=== PATIENT | female | born 1930 | race Caucasian/White ===

== ENCOUNTER 2017-04-06 05:54 | Emergency (ER) | payer MEDICARE ==
[~2017-04-06] VITALS: Ht 152.4 cm; Wt 50.8 kg
[~2017-04-06 05:54] MED LIST: DARVOCET N 1001 TAB PO
[2017-04-06] MEDS ORDERED: PRAVACHOL80 M1 PO (06:00)
[2017-04-06] MEDS ORDERED: METFORMIN1000 MG PO (06:00)
[2017-04-06] MEDS ORDERED: HYDR25T PO (06:01)
[2017-04-06] MEDS ORDERED: ASPIRIN CHEWABL81 MG PO (06:01)
[2017-04-06] MEDS ORDERED: NORVASC10 MG PO (06:01)
[2017-04-06] MEDS ORDERED: LISINOPRIL20 MG PO (06:01)
[2017-04-06] MEDS ORDERED: TIMOLOL 5 ML5 ML OPH (06:02)
[2017-04-06] MEDS ORDERED: TRAVATAN 0.0042.5 M1 OP (06:02)
[2017-04-06 06:23] LABS: BILIRUBIN NEGATIVE (NEGATIVE); BLOOD 3+ (NEGATIVE); CLARITY CLOUDY (CLEAR); COLOR RED (YELLOW); GLUCOSE NEGATIVE (NEGATIVE); KETONE NEGATIVE (NEGATIVE); LEUKO ESTERASE 3+ (NEGATIVE); NITRITE NEGATIVE (NEGATIVE); SPECIFIC GRAVITY <= 1.005 (1.005-1.030); UROBILINOGEN 0.2 E.U./dl (0.2-1.0)
[2017-04-06 06:30] LABS: BASO # 0.1 10*3/uL (0.0-0.1); EOS # 0.4 10*3/uL (0.0-0.4); EOS % 4.4 % (1.0-4.0); HEMATOCRIT 35.3 % (37.0-47.0); HEMOGLOBIN 10.9 g/dl (12.0-16.0); LYMPH # 2.4 10*3/uL (1.3-4.4); LYMPH % 28.8 % (27.0-41.0); MEAN CELL VOLUME 75.1 fl (81.0-99.0); MEAN CORPUSCULAR HGB 23.2 pg (27.0-31.0); MEAN CORPUSCULAR HGB CONC 30.9 g/dl (33.0-37.0); MEAN PLATELET VOLUME 8.5 fl (9.6-12.3); MONO # 0.6 10*3/uL (0.1-1.0); MONO % 7.6 % (3.0-9.0); NEUT # 4.8 10*3/uL (2.3-7.9); PLATELET COUNT AUTOMATED 354 10*3/uL (130-400); RED CELL DISTRI WIDTH 16.4 % (0-14.5); WHITE BLOOD COUNT 8.2 10*3/uL (4.8-10.8)
[2017-04-06 06:45] LABS: BACTERIA 2+; RBC TNTC rbc/hpf (0-2); WBC 31-40 wbc/hpf (0-5)
[2017-04-06 06:46] LABS: ALBUMIN 3.6 gm/dl (3.1-4.5); ALKALINE PHOSPHATASE 55 U/L (45-117); BUN 11 mg/dl (7-24); CHLORIDE 101 mmol/L (98-107); CREATININE 0.75 mg/dL (0.55-1.02); LIPASE 175 U/L (73-393); POTASSIUM 3.9 mmol/L (3.5-5.1); SGOT/AST 21 IU/L (3-35); SGPT/ALT 15 U/L (12-78); SODIUM 139 mmol/L (136-145); TOTAL PROTEIN 8.2 gm/dL (6.4-8.2)
[2017-04-06 06:48] LABS: TROPONIN I < 0.015 ng/ml (<0.045)
[2017-04-06] MEDS ORDERED: LEVAQUIN250 M1 PO (10:58)
== END 2017-04-06 11:31 | disposition home or self-care (01) ==
LOC: ED 05:54
PROVIDERS: Emergency Medicine Emergency Medical Services
DX: N39.0 Urinary tract infection, site not specified (principal); Z90.49 Acquired absence of other specified parts of digestive tract; Z90.710 Acquired absence of both cervix and uterus; Z79.899 Other long term (current) drug therapy; Z79.82 Long term (current) use of aspirin

== ENCOUNTER → 2018-01-19 | Outpatient (CLI) | payer MEDICARE ==
[~2018-01-19] MED LIST changes: +ASPIRIN CHEWABL81 MG PO; +HYDR25T PO; +LEVAQUIN250 M1 PO; +LISINOPRIL20 MG PO; +METFORMIN1000 MG PO; +NORVASC10 MG PO; +PRAVACHOL80 M1 PO; +TIMOLOL 5 ML5 ML OPH; +TRAVATAN 0.0042.5 M1 OP
== END | disposition home or self-care (01) ==
LOC: CARD 08:00
DX: I35.0 Nonrheumatic aortic (valve) stenosis (principal)

== ENCOUNTER → 2019-02-21 | Outpatient (CLI) | payer MEDICARE ==
[2019-02-21 09:09] LABS: BASO # 0.1 10*3/uL (0.0-0.1); BASO % 1.1 % (0.0-1.0); EOS # 0.3 10*3/uL (0.0-0.4); EOS % 4.8 % (1.0-4.0); HEMATOCRIT 31.9 % (37.0-47.0); HEMOGLOBIN 9.1 g/dl (12.0-16.0); LYMPH # 1.8 10*3/uL (1.3-4.4); LYMPH % 32.2 % (27.0-41.0); MEAN CELL VOLUME 68.2 fl (81.0-99.0); MEAN CORPUSCULAR HGB 19.4 pg (27.0-31.0); MEAN CORPUSCULAR HGB CONC 28.5 g/dl (33.0-37.0); MEAN PLATELET VOLUME 9.1 fl (9.6-12.3); MONO # 0.5 10*3/uL (0.1-1.0); MONO % 8.8 % (3.0-9.0); NEUT % 52.9 % (47.0-73.0); PLATELET COUNT AUTOMATED 461 10*3/uL (130-400); RED BLOOD COUNT 4.68 10*6/uL (4.10-5.10); RED CELL DISTRI WIDTH 19.1 % (0-14.5); WHITE BLOOD COUNT 5.7 10*3/uL (4.8-10.8)
[2019-02-21 09:43] LABS: ALBUMIN 3.7 gm/dl (3.1-4.5); ALKALINE PHOSPHATASE 62 U/L (45-117); BUN 12 mg/dl (7-24); CHLORIDE 99 mmol/L (98-107); CHOLESTEROL 164 mg/dL (<200); CREATININE 0.69 mg/dL (0.55-1.02); HDL CHOLESTEROL 89 mg/dl (40-60); LDL CHOLESTEROL 54 mg/dL (9-159); POTASSIUM 3.5 mmol/L (3.5-5.1); SGOT/AST 15 IU/L (3-35); SGPT/ALT 13 U/L (12-78); SODIUM 136 mmol/L (136-145); TOTAL PROTEIN 7.9 gm/dL (6.4-8.2); TRIGLYCERIDES 105 mg/dl (<150); VLDL CHOLESTEROL 21 mg/dL (6-40)
== END | disposition home or self-care (01) ==
LOC: LAB 07:53
PROVIDERS: Family Medicine
DX: R53.83 Other fatigue (principal); E11.9 Type 2 diabetes mellitus without complications; E78.2 Mixed hyperlipidemia; I10 Essential (primary) hypertension

== ENCOUNTER 2019-06-09 11:46 | Inpatient (IN) | payer MEDICARE ==
[~2019-06-09] VITALS: Ht 152.4 cm; Wt 50.5 kg
[2019-06-09 11:47] VITALS: BP 147/66
[2019-06-09 13:41] LABS: BASO # 0.1 10*3/uL (0.0-0.1); BASO % 0.4 % (0.0-1.0); EOS # 0.4 10*3/uL (0.0-0.4); EOS % 1.9 % (1.0-4.0); HEMATOCRIT 32.8 % (37.0-47.0); HEMOGLOBIN 9.7 g/dl (12.0-16.0); LYMPH # 1.6 10*3/uL (1.3-4.4); LYMPH % 8.1 % (27.0-41.0); MEAN CELL VOLUME 69.6 fl (81.0-99.0); MEAN CORPUSCULAR HGB 20.6 pg (27.0-31.0); MEAN CORPUSCULAR HGB CONC 29.6 g/dl (33.0-37.0); MEAN PLATELET VOLUME 8.9 fl (9.6-12.3); NEUT # 16.8 10*3/uL (2.3-7.9); NEUT % 83.9 % (47.0-73.0); PLATELET COUNT AUTOMATED 414 10*3/uL (130-400); RED BLOOD COUNT 4.71 10*6/uL (4.10-5.10)
[2019-06-09 13:54] LABS: ACT PARTIAL THROMBO TIME 24.2 SECONDS (20.0-32.1); ALBUMIN 3.3 gm/dl (3.1-4.5); ALKALINE PHOSPHATASE 50 U/L (45-117); BUN 11 mg/dl (7-24); CHLORIDE 102 mmol/L (98-107); LIPASE 92 U/L (73-393); POTASSIUM 3.8 mmol/L (3.5-5.1); SGOT/AST 28 IU/L (3-35); SGPT/ALT 22 U/L (12-78); SODIUM 137 mmol/L (136-145)
[2019-06-09 13:55] LABS: TROPONIN I < 0.015 ng/ml (<0.045)
[2019-06-09 15:28] LABS: BILIRUBIN NEGATIVE (NEGATIVE); BLOOD NEGATIVE (NEGATIVE); CLARITY CLEAR (CLEAR); COLOR YELLOW (YELLOW); GLUCOSE NEGATIVE (NEGATIVE); KETONE 1+ (NEGATIVE); LEUKO ESTERASE 2+ (NEGATIVE); NITRITE NEGATIVE (NEGATIVE); PH 7.5 (5.0-9.0); SPECIFIC GRAVITY 1.015 (1.005-1.030); UROBILINOGEN 0.2 E.U./dl (0.2-1.0)
[2019-06-09 16:56] VITALS: BP 137/67
[2019-06-09 17:26] VITALS: BP 118/59
[2019-06-09 18:26] VITALS: BP 134/76
--- NOTE | 2019-06-09 18:40 | NUR ---
Time: 1839 A 89 year old female admitted to 5E under services of MADAI DE JESUS DO. Pt. arrived via stretcher from ER. Chief complaint: left hip pain post fall. [employer]
--- NOTE | 2019-06-09 18:45 | NUR ---
Reviewed home med list with pt daughter Sarah.
[2019-06-09] MEDS ORDERED: PRESERVISION A1 EAC1 PO (18:48)
--- NOTE | 2019-06-09 18:50 | NUR ---
Notified Dr. Hein that med rec was updated.
--- NOTE | 2019-06-09 19:00 | NUR ---
In email no ortho coverage today. Dr. Jay is available for phone triage tomorrow.
[2019-06-09 20:00] VITALS: BP 136/65
[2019-06-10] VITALS: BP 132/69
[2019-06-10 06:49] LABS: BASO % 0.3 % (0.0-1.0); EOS # 0.2 10*3/uL (0.0-0.4); EOS % 1.6 % (1.0-4.0); HEMOGLOBIN 8.5 g/dl (12.0-16.0); LYMPH # 1.2 10*3/uL (1.3-4.4); LYMPH % 12.7 % (27.0-41.0); MEAN CELL VOLUME 68.9 fl (81.0-99.0); MEAN CORPUSCULAR HGB 20.2 pg (27.0-31.0); MEAN CORPUSCULAR HGB CONC 29.3 g/dl (33.0-37.0); MEAN PLATELET VOLUME 8.4 fl (9.6-12.3); MONO # 0.7 10*3/uL (0.1-1.0); MONO % 7.1 % (3.0-9.0); NEUT # 7.3 10*3/uL (2.3-7.9); NEUT % 77.9 % (47.0-73.0); PLATELET COUNT AUTOMATED 314 10*3/uL (130-400); RED BLOOD COUNT 4.21 10*6/uL (4.10-5.10); RED CELL DISTRI WIDTH 19.8 % (0-14.5); WHITE BLOOD COUNT 9.4 10*3/uL (4.8-10.8)
[2019-06-10 07:15] LABS: ALBUMIN 2.9 gm/dl (3.1-4.5); ALKALINE PHOSPHATASE 49 U/L (45-117); BUN 10 mg/dl (7-24); CHLORIDE 99 mmol/L (98-107); CREATININE 0.58 mg/dL (0.55-1.02); PHOSPHOROUS 3.2 mg/dL (2.5-4.9); POTASSIUM 3.7 mmol/L (3.5-5.1); SGOT/AST 21 IU/L (3-35); SGPT/ALT 19 U/L (12-78); SODIUM 135 mmol/L (136-145); TOTAL PROTEIN 6.5 gm/dL (6.4-8.2)
[2019-06-10 07:42] LABS: VITAMIN D, 25-HYDROXY 39.1 ng/mL (30-100)
[2019-06-10 08:00] VITALS: BP 143/62
--- NOTE | 2019-06-10 08:14 | NUR ---
PT C/O OF NAUSEA PRN ZOFRAN GIVEN PER ORDER
--- NOTE | 2019-06-10 09:40 | NUR ---
PT C/O OF NAUSEA AND DISCOMFORT IN PELVIC AREA, PAIN RATING 5/10 PRN PHENERGAN GIVEN D/T ZOFRAN BEING INEFFECTIVE, PRN NORCO GIVEN FOR PAIN
--- NOTE | 2019-06-10 10:00 | NUR ---
PT RESTING WITH EYES CLOSED, NO COMPLAINTS, GRAND DAUGHTER AT BEDSIDE
[2019-06-10 12:00] VITALS: BP 118/49
[2019-06-10 16:00] VITALS: BP 122/50
--- NOTE | 2019-06-10 19:54 | NUR ---
PATIENT IS RESTING IN BED WITH EASY AND REGULAR RESPERS ON ROOM AIR. ASSESSMENT IS COMPLETE WITH NO S/S OF DISTRESS NOTED AT THIS TIME. PATIENT DOES C/O OF PELVIC PAIN RATING A 5/10. BED IS LOW, LOCKED, AND CALL LIGHT IS WITHIN REACH. WILL CONTINUE TO MONITOR. BEDSIDE GLUCOSE 174.
[2019-06-10 20:00] VITALS: BP 126/65
--- NOTE | 2019-06-10 20:04 | NUR ---
PRN NORCO GIVEN FOR C/O PELVIC PAIN RATING A 7/10. CALL LIGHT IS WITHIN REACH, WILL MONITOR EFFECT.
--- NOTE | 2019-06-10 20:08 | NUR ---
PRN NORCO GIVEN PER ORDER. PATIENT TOLERATED WELL. CALL LIGHT IS WITHIHN REACH WILL MONITOR EFFECT.
--- NOTE | 2019-06-10 21:00 | NUR ---
PRN NORCO EFFECTIVE, PATIENT IS SLEEPING WITH EASY AND REGULAR RESPERS ON ROOM AIR. CALL LIGHT IS WITHIN REACH.
[2019-06-11] VITALS: BP 116/68
[2019-06-11 06:44] LABS: BASO % 0.4 % (0.0-1.0); EOS % 0.3 % (1.0-4.0); HEMATOCRIT 28.9 % (37.0-47.0); HEMOGLOBIN 8.4 g/dl (12.0-16.0); LYMPH % 8.3 % (27.0-41.0); MEAN CELL VOLUME 69.6 fl (81.0-99.0); MEAN CORPUSCULAR HGB 20.2 pg (27.0-31.0); MEAN CORPUSCULAR HGB CONC 29.1 g/dl (33.0-37.0); MONO # 0.8 10*3/uL (0.1-1.0); NEUT # 9.5 10*3/uL (2.3-7.9); NEUT % 83.5 % (47.0-73.0); PLATELET COUNT AUTOMATED 347 10*3/uL (130-400); RED BLOOD COUNT 4.15 10*6/uL (4.10-5.10); RED CELL DISTRI WIDTH 19.9 % (0-14.5); WHITE BLOOD COUNT 11.4 10*3/uL (4.8-10.8)
[2019-06-11 07:15] LABS: ALBUMIN 2.7 gm/dl (3.1-4.5); ALKALINE PHOSPHATASE 54 U/L (45-117); BUN 13 mg/dl (7-24); CHLORIDE 98 mmol/L (98-107); CREATININE 0.65 mg/dL (0.55-1.02); POTASSIUM 3.8 mmol/L (3.5-5.1); SGOT/AST 18 IU/L (3-35); SGPT/ALT 16 U/L (12-78); SODIUM 135 mmol/L (136-145); TOTAL PROTEIN 6.5 gm/dL (6.4-8.2)
[2019-06-11 08:00] VITALS: BP 110/56
--- NOTE | 2019-06-11 09:30 | NUR ---
PHYSICAL THERAPY PT EVAL COMPLETED ON LEVEL 5: FULL EVAL TO FOLLOW . RECOMMEND PT WHILE HERE TO ADDRESS DECREASED STRENGTH AND FUNCTIONAL MOBILITY . PT EVAL IS MODERATE COMPLEXITY: [id number]. D/C REC: SNF ON D/C. THANK YOU FOR REFERRAL ASHLEY PETERS PT
--- NOTE | 2019-06-11 10:58 | NUR ---
PT BLADDER SCANNED PER ORDER, 700CC RESIDUAL URINE PRESENT PER BLADDER SCANNER, AT BEDSIDE AND ORDERED TAYLOR CATH TO BE INSERTED, 16FR TAYLOR CATH INSERTED USING STERILE TECHNNIQUE, IMMEDIATE RETURN OF 600CC STAR CLEAR URINE OUTPUT, BALLOON INFLATED AND PT TOLERATED INSERTION WIHTOU ANY DIFFICULTIES
[2019-06-11 12:00] VITALS: BP 131/58
[2019-06-11 16:00] VITALS: BP 106/50
[2019-06-11 20:00] VITALS: BP 115/52
--- NOTE | 2019-06-11 20:34 | NUR ---
PRN TYLENOL GIVEN FOR PELVIC PAIN, CALL LIGHT IS WITHIN REACH. WILL MONITOR EFFECT.
[2019-06-12] VITALS: BP 113/53
--- NOTE | 2019-06-12 04:37 | NUR ---
PRN NORCO GIVEN FOR PELVIC PAIN, BEDSIDE GLUCOSE 124.
--- NOTE | 2019-06-12 04:37 | NUR ---
PRN NORCO GIVEN FOR PELVIC PAIN, BEDSIDE GLUCOSE 124. CALL LIGHT IS WITHIN REACH. WILL MONITOR EFFECT.
--- NOTE | 2019-06-12 05:27 | NUR ---
PRN NORCO SEEMS EFFECTIVE, PATIENT IS SLEEPING. CALL LIGHT IS WITHIN REACH.
[2019-06-12 06:29] LABS: BASO # 0.1 10*3/uL (0.0-0.1); BASO % 0.4 % (0.0-1.0); EOS # 0.2 10*3/uL (0.0-0.4); EOS % 1.8 % (1.0-4.0); HEMATOCRIT 26.1 % (37.0-47.0); HEMOGLOBIN 7.7 g/dl (12.0-16.0); LYMPH # 1.5 10*3/uL (1.3-4.4); MEAN CORPUSCULAR HGB 20.4 pg (27.0-31.0); MEAN CORPUSCULAR HGB CONC 29.5 g/dl (33.0-37.0); MEAN PLATELET VOLUME 8.9 fl (9.6-12.3); MONO # 1.1 10*3/uL (0.1-1.0); MONO % 9.1 % (3.0-9.0); NEUT # 8.7 10*3/uL (2.3-7.9); NEUT % 75.2 % (47.0-73.0); PLATELET COUNT AUTOMATED 302 10*3/uL (130-400); RED BLOOD COUNT 3.78 10*6/uL (4.10-5.10); RED CELL DISTRI WIDTH 19.9 % (0-14.5); WHITE BLOOD COUNT 11.5 10*3/uL (4.8-10.8)
[2019-06-12 06:37] LABS: ALBUMIN 2.5 gm/dl (3.1-4.5); ALKALINE PHOSPHATASE 55 U/L (45-117); BUN 13 mg/dl (7-24); CHLORIDE 97 mmol/L (98-107); SGOT/AST 17 IU/L (3-35); SGPT/ALT 13 U/L (12-78); SODIUM 134 mmol/L (136-145); TOTAL PROTEIN 6.1 gm/dL (6.4-8.2)
--- NOTE | 2019-06-12 07:30 | NUR ---
ALL VITALS WITHIN NORMAL RANGES. IBETH. A&O X3. PO2 94% R/A. PT STATES "I'M NOT IN PAIN RIGHT NOW" DURING ASSESSMENT. HEART SOUNDS NORMAL. RADIAL PULSES REGULAR AND STRONG. LUNG SOUNDS CLEAR THROUGHT. BOWEL SOUNDS ACTIVE X4. SOFT, NONTENDER, NONDISTENDED. SKIN PINK, WARM, DRY, AND INTACT. SKIN TURGOR NONTENTED. SMALL, PAINLESS HEMATOMA NOTED ON LEFT LABIA MAJORA. APPROX 5CM X 1.5CM. NOT RAISED, DARK PURPLE IN COLOR. IV SITE IN RIGHT AC INTACT WITH NO SIGNS OF INFECTION. 16FR TAYLOR PATENT WITH CLEAR, YELLOW URINE. PT IS PLEASNT AND COOPERATIVE AND HOLDS CONVERSATION WELL. WILL CONTINUE TO ASSESS. OSCAR BRANCH SPNRCC.
--- NOTE | 2019-06-12 07:30 | NUR ---
ALL VITALS WITHIN THEIR NORMAL RANGES. PO2 94% R/A. IBETH. A&O X3. HEART SOUNDS NORMAL. RADIAL PULSES REGULAR AND STRONG. LUNG SOUNDS CLEAR THROUGHOUT. BOWEL SOUNDS ACTIVE X4; SOFT, NONTENDER, NONDISTENDED. SKIN IS PINK, WARM, DRY, AND INTACT. SMALL NONPAINFUL HEMATOMA ON LEFT LABIA MAJORA, APPROX 5CM X 1.5CM, NOT RAISED, DARK PURPLE IN COLOR. SKIN TUGOR NONTENTED. POSITIVE PEDAL PULSES. IV SITE IN RAN INTACT WITH NO SIGNS OF INFECTION. 16 FR TAYLOR CATHETER PATENT WITH CLEAR YELLOW URINE. PT STATES SHE IS "NOT IN PAIN AT THIS TIME. I HAD MY PAIN MEDICINE THE MORNING." WILL CONTINUE TO ASSESS. PT PLEASANT AND COOPERATIVE. OSCAR BRANCH SPNRCC.
[2019-06-12 07:59] VITALS: BP 134/60
--- NOTE | 2019-06-12 08:01 | NUR ---
PHYSICAL THERAPY Screen received as well as orders for PT, patient was evaluated on 06/11 and is on caseload, thank you. Albertina Andrade PT
--- NOTE | 2019-06-12 08:07 | NUR ---
SECRETARIAL TEACHER received notice the patient would like to be referred to 1.[facility] or 2.[facility]. SECRETARIAL TEACHER [facility] -RADHA Renee
--- NOTE | 2019-06-12 08:47 | NUR ---
Nursing screen received and chart reviewed. If patient has a decline in ADLs and functional mobility/transfers, please send OT orders. Thank you for the referral. Thuy Shelton, OTR/L
--- NOTE | 2019-06-12 08:55 | NUR ---
SON IN TO VISIT WITH PATIENT. PT IS ALERT AND SITTING UPRIGHT IN BED, HOLDING CONVERSATION WELL. [facility]AR [facility]ANCH [facility].
--- NOTE | 2019-06-12 09:16 | NUR ---
PHYSICAL THERAPY PT SUPINE IN BED WITH SON JOHAN UPON ARRIVAL AND BED ALARM ON. PT AGREED TO ALL PHYSICAL THERAPY TREATMENT THIS VISIT. PT REPORTS 2/10 PAIN WITH SUPINE OR SITTING, 4/10 PAIN STANDING AND 6/10 PAIN WHEN PUTTING WEIGHT INTO LLE. PT REPORTS " I AM UNABLE TO MOVE MY LEFT LEG. IT IS SO WEAK." PT PERFORMED BED MOBILITY WITH MODa X1 WITH VC'S TO USE BED RAIL FOR ASSITANCE. PT PERFORMED PERFOREMD STS FROM EOB WITH Isidra X1 WITH VC'S FOR SAFETY AND PROPER TECHNIQUE. PT PERFORMED STAND PIVOT TRANSFER WITH FWW AND Isidra/MODa X1 WITH VC'S FOR SAFETY AND TECHNIQUE TO START TASK. PT PERFORMED STS TO RECLINER WITH VC'S FOR SAFETY PT HAD UNSAFETY TRANSFER TO SITTING. PT PLOPPED INTO CAHIR. PT HAD BODY ALRAM ON. PT SEEN 1:1 FOR 14 MINS THIS A.M. [facility]
--- NOTE | 2019-06-12 11:15 | NUR ---
PT SITTING UPRIGHT IN CHAIR. RESTING WITH EYES CLOSED. NO SIGN OF DISTRESS. OSCAR BRANCH SPNRCC.
--- NOTE | 2019-06-12 11:35 | NUR ---
PHYSICAL THERAPY Patient presented to therapy in sitting in bedside chair with LEs elevated and report of minimal pain in the L hip/pelvis. Patient gives informed consent for treatment. Patient was idenified by name and on wristband. Patient performed sit to stand from bedside chair with MIN A X 1. Patient 4 steps to bedside and turn Wh Walker and back up to bed with CGA X 1 and verbal cues for pushing down on Wh Walker and lifting the L foot to advance L LE. Patient sat on EOB with SBA. Patient transferred to supine in bed with MIN A X 1 , mostly for assisting with L LE. Patient was left in supine in bed with head of bed elevated, call light within reach and bed alarm activated. Patient was 1:1 with this SHOP STEWARD for 12 minutes total. BROOKE GAVIN SHOP STEWARD
--- NOTE | 2019-06-12 11:55 | NUR ---
NORCO 1 PO GIVEN PER PATIENTS REQUEST FOR "ACHING HIP AND TAILBONE" PAIN. PT ALSO RECEIVED DULCOLAX 5MG PO DUE TO NO BOWEL MOVEMENT FOR "A COUPLE OF DAY" PER PT. WILL CONTINUE TO ASSESS. OSCAR BRANCH SPPRIMITIVO
[2019-06-12 12:00] VITALS: BP 100/79
--- NOTE | 2019-06-12 12:45 | NUR ---
NORCO 1 PO EFFECTIVE. PER PT "THE PAIN IS DULLER RIGHT NOW. MY TAILBONE IS STILL A LITTLE SORE". COCCYX OBSERVED FOR SKIN BREAKDOWN. SKIN IS WARM, DRY, AND INTACT. DULCOLAX 5MG PO HAS NOT BEEN EFFECTIVE OF TIME OF ASSESSMENT. WILL CONTINUE TO ASSESS FOR BOWEL MOVEMENT. OSCAR BRANCH SPNRCC.
--- NOTE | 2019-06-12 12:49 | NUR ---
Calliope Player in to talk to patient. Patient states lives at HOME with ALONE. There are BASEMENT steps in the home. Physician: AUGUSTUS Pharmacy: [facility] Home health services: NONE Patient's level of ADLs: INDEPENDENT Patient has working utilities: YES DME: NONE Follow-up physician's appointment after d/c: WILL BE MADE BY HOSPITALIST NURSE DIRECTOR ON DISCHARGE Does patient want to access PORTAL?: NO Discharge plan PT LIVES AT HOME ALONE AND WAS INDEPENDENT IN CARE. STATES SHE HAD A FALL AT HOME AND WANTS TO GO TO SNF BEFORE GOING BACK HOME. PT HAS BEEN REFERRED TO [facility]. WAITING FOR ACCEPTANCE. WILL CONTINUE TO FOLLOW. . ALYSIA SHEIKH
--- NOTE | 2019-06-12 13:51 | NUR ---
PHYSICAL THERAPY Patient presented to therapy in supine with head of bed elevated and pillow under R hip to relieve pressure on tail bone, which is bothering her. Patient's bed alarm is on. Patient gives informed consent for treatment. Patient was identified by name and on wristbband. Patient performed supine to sitting at EOB transfer with MOD A X 1. Patient sat on EOB with SBA. Patient performed bilateral LE ther ex 2 x 10 reps including LAQs, Marches, and heel/toe raises. Marches performed leaning back onto bed onto hands to avoid excessive hip flexion. Patient sat for 15 minutes total on EOB with SBA. Patient transferred back to supine in bed with MOD A X 1, mostly for assisting with lifting L LE into bed. Patient was left in supine in bed with head of bed elevated, call light within within reach and bed alarm activated. Pillow put under patient's tail bone and R hip, as it was upon this POCKETBOOK MAKER arriving in the patient's room. Patient was 1:1 with this POCKETBOOK MAKER for 16 minutes total. BROOKE GAVIN POCKETBOOK MAKER
--- NOTE | 2019-06-12 15:02 | NUR ---
Patient has been accepted at [facility] and can go when medically stable. -RADHA Renee
--- NOTE | 2019-06-12 15:14 | NUR ---
PHYSICIAN ASSISTANT completed HENs. -RADHA Renee
[2019-06-12 16:00] VITALS: BP 121/50
--- NOTE | 2019-06-12 16:35 | NUR ---
PT C/O OF SACRUM PAIN RATING 5/10 REQUEST PRN NORCO
--- NOTE | 2019-06-12 17:00 | NUR ---
PER PT PRN NORCO WAS EFFECTIVE FOR SACRUM PAIN
--- NOTE | 2019-06-12 17:17 | NUR ---
PRN ZOFRAN GIVEN FOR NAUSEA
[2019-06-12 18:27] LABS: BASO # 0.1 10*3/uL (0.0-0.1); BASO % 0.4 % (0.0-1.0); EOS # 0.2 10*3/uL (0.0-0.4); EOS % 1.6 % (1.0-4.0); HEMATOCRIT 25.6 % (37.0-47.0); HEMOGLOBIN 7.6 g/dl (12.0-16.0); LYMPH # 1.3 10*3/uL (1.3-4.4); LYMPH % 10.9 % (27.0-41.0); MEAN CORPUSCULAR HGB 20.5 pg (27.0-31.0); MEAN CORPUSCULAR HGB CONC 29.7 g/dl (33.0-37.0); MEAN PLATELET VOLUME 8.7 fl (9.6-12.3); MONO # 1.2 10*3/uL (0.1-1.0); MONO % 9.7 % (3.0-9.0); NEUT # 9.3 10*3/uL (2.3-7.9); NUCLEATED RED BLOOD CELL 0.2 % (0.0-0.0); PLATELET COUNT AUTOMATED 312 10*3/uL (130-400); RED BLOOD COUNT 3.71 10*6/uL (4.10-5.10); RED CELL DISTRI WIDTH 19.9 % (0-14.5); WHITE BLOOD COUNT 12.1 10*3/uL (4.8-10.8)
[2019-06-12 20:00] VITALS: BP 107/49
--- NOTE | 2019-06-12 20:00 | NUR ---
RESTING IN BED WITH HOB SLIGHTLY ELEVATED. EYES CLOSED; RESPIRATIONS EASY & UNLABORED ON ROOM AIR. BED ALARM ON; BED IN LOW LOCKED POSITION. CALL LIGHT WITHIN REACH.
--- NOTE | 2019-06-12 22:00 | NUR ---
BLOOD SUGAR 151.
[2019-06-13] VITALS: BP 120/55
--- NOTE | 2019-06-13 06:30 | NUR ---
BLOOD SUGAR 121.
[2019-06-13 08:00] VITALS: BP 114/58
--- NOTE | 2019-06-13 08:10 | NUR ---
Patient has been accepted at [facility] and can go when medically stable. SIDE FRAMER faxed updates to [facility]. -RADHA Renee
--- NOTE | 2019-06-13 09:04 | NUR ---
PT MEDICATED WITH PRN NORCO AT THIS TIME FOR C/O PUBIC PAIN. PT RATES PAIN 02/04. WILL MONITOR.
[2019-06-13 12:00] VITALS: BP 88/52
--- NOTE | 2019-06-13 13:09 | NUR ---
PHYSICAL THERAPY TREATMENT TIME: 1050 AM - 11:11 AM Patient presented to therapy in supine in bed with bed alarm activated and report of minimal pain in the LE hip because she was given her pain medication at around 9:00 am. Patient was identified by name and on wristband. Patient gives informed consent for treatment. Patient performed supine to sitting at EOB transfer with MIN A X 1. Patient sat on EOB with SBA. Patient sit to stand transfer with MIN A X 1. Patient SPT with Wh Walker to the bedside chair with MIN A X 1. Verbal cues for upright posture and advancing LEs. Patient transferred to bedside chair with MIN A X 1 with verbal cues for putting hands back on armrests of chair. Patient performed sitting bilateral LE ther ex 2 x 10 reps each including LAQs, Marches and heel/toe raises for strengthenign the hips and LEs. Patient was left in bedside chair with call light within reach, chair alarm tested and attached and LEs elevated. Patient was 1:1 with this CARD DEALER for 20 minutes total. BROOKE GAVIN CARD DEALER
--- NOTE | 2019-06-13 14:00 | NUR ---
PHYSICAL THERAPY TREATMENT TIME: 13:15 - 13:32 Patient presented to therapy this afternoon in sitting position in bedside chair with chair alarm attached. Patient gives informed consent for treatment. Patient was identified by name and on wristband. Patient performed sit to stand transfer from BEDSIDE CHAIR with MIN A X 1. Patient SPT transfer with Wh Walker and MIN A X 1 to EOB where she sat with CGA X 1. Patient transferred to supine in bed wit hMIN A X 1. pATIENT WAS LEFT IN SUPINE IN BED WITH CALL LIGHT WITHN REACH, bed alarm activated and head of bed elevated. PATIENT WAS 1:1 [facility] SHAPING MACHINE TENDER for 17 minutes total. iam sinha motorized squad captain
--- NOTE | 2019-06-13 14:06 | NUR ---
PT HAS BEEN ACCEPTED TO [facility] AND CAN GO WHEN MEDICALLY STABLE. WILL CONTINUE TO FOLLOW.
--- NOTE | 2019-06-13 14:42 | NUR ---
PT MEDICATED WITH PRN ZOFRAN FOR C/O NAUSEA. WILL MONITOR.
[2019-06-13 16:00] VITALS: BP 106/50
[2019-06-13] MEDS ORDERED: ZOFRAN4 MG PO (16:47)
[2019-06-13] MEDS ORDERED: HYDROCODONE-AC1 EAC1 PO (16:51)
--- NOTE | 2019-06-13 17:57 | NUR ---
REPORT GIVEN TO PSYCHIATRIC. INVENTORY CONTROL ASSISTANT TIME 6PM VIA [employer].
--- NOTE | 2019-06-13 19:30 | NUR ---
PT. LEFT VIA [facility]. STABLE.
--- NOTE | 2019-06-14 07:40 | NUR ---
PHYSICAL THERAPY CO-SIGN I approve of the Physical Therapy notes written above. Albertina Andrade PT
== END 2019-06-13 19:30 | disposition other institution (70) | DRG 872 ==
LOC: ED 11:46 → 5E 16:59 → EDHOLD 16:59 → 5E 18:47
PROVIDERS: Family Medicine; Hospitalist; Internal Medicine; Physician Assistant; ADMIT Emergency Medicine
DX: A41.9 Sepsis, unspecified organism (principal); S32.512A Fracture of superior rim of left pubis, initial encounter for closed fracture; N30.00 Acute cystitis without hematuria; E44.0 Moderate protein-calorie malnutrition; E87.1 Hypo-osmolality and hyponatremia; D50.9 Iron deficiency anemia, unspecified; I10 Essential (primary) hypertension; E78.5 Hyperlipidemia, unspecified; Z96.642 Presence of left artificial hip joint; E11.65 Type 2 diabetes mellitus with hyperglycemia; E83.42 Hypomagnesemia; W18.30XA Fall on same level, unspecified, initial encounter; Y93.89 Activity, other specified; Y92.89 Other specified places as the place of occurrence of the external cause; Z88.5 Allergy status to narcotic agent; Z90.49 Acquired absence of other specified parts of digestive tract; Z90.710 Acquired absence of both cervix and uterus; Z80.8 Family history of malignant neoplasm of other organs or systems; Y99.8 Other external cause status; Z82.49 Family history of ischemic heart disease and other diseases of the circulatory system; Z79.899 Other long term (current) drug therapy; Z79.82 Long term (current) use of aspirin; Z68.21 Body mass index [BMI] 21.0-21.9, adult

== ENCOUNTER → 2019-07-17 | Outpatient (CLI) | payer MEDICARE ==
[~2019-07-17] MED LIST changes: +HYDROCODONE-AC1 EAC1 PO; +PRESERVISION A1 EAC1 PO; +ZOFRAN4 MG PO
== END | disposition home or self-care (01) ==
LOC: ORTHO 00:59
DX: S32.592D Other specified fracture of left pubis, subsequent encounter for fracture with routine healing (principal); S32.512D Fracture of superior rim of left pubis, subsequent encounter for fracture with routine healing; M85.88 Other specified disorders of bone density and structure, other site; Z98.890 Other specified postprocedural states; X58.XXXD Exposure to other specified factors, subsequent encounter

== ENCOUNTER → 2019-07-31 | Outpatient (CLI) | payer MEDICARE | END | disposition home or self-care (01) | LOC: ORTHO 00:35 | DX: S32.592D Other specified fracture of left pubis, subsequent encounter for fracture with routine healing (principal); X58.XXXD Exposure to other specified factors, subsequent encounter ==

== ENCOUNTER 2019-11-04 21:14 | Emergency (ER) | payer MEDICARE ==
[~2019-11-04] VITALS: Ht 152.4 cm; Wt 45.4 kg
[2019-11-04 22:11] LABS: BASO # 0.1 10*3/uL (0.0-0.1); BASO % 0.8 % (0.0-1.0); EOS # 0.5 10*3/uL (0.0-0.4); EOS % 3.4 % (1.0-4.0); HEMATOCRIT 32.5 % (37.0-47.0); LYMPH # 1.9 10*3/uL (1.3-4.4); LYMPH % 13.6 % (27.0-41.0); MEAN CELL VOLUME 70.7 fl (81.0-99.0); MEAN CORPUSCULAR HGB 21.1 pg (27.0-31.0); MEAN CORPUSCULAR HGB CONC 29.8 g/dl (33.0-37.0); MEAN PLATELET VOLUME 8.6 fl (9.6-12.3); MONO # 0.7 10*3/uL (0.1-1.0); MONO % 5.1 % (3.0-9.0); NEUT # 10.5 10*3/uL (2.3-7.9); NEUT % 76.7 % (47.0-73.0); PLATELET COUNT AUTOMATED 390 10*3/uL (130-400); RED CELL DISTRI WIDTH 21.5 % (0-14.5); WHITE BLOOD COUNT 13.6 10*3/uL (4.8-10.8)
[2019-11-04 22:26] LABS: ALBUMIN 3.2 gm/dl (3.1-4.5); ALKALINE PHOSPHATASE 62 U/L (45-117); BUN 13 mg/dl (7-24); CHLORIDE 97 mmol/L (98-107); CREATININE 0.72 mg/dL (0.55-1.02); LIPASE 82 U/L (73-393); POTASSIUM 3.9 mmol/L (3.5-5.1); SGOT/AST 37 IU/L (3-35); SGPT/ALT 19 U/L (12-78); SODIUM 132 mmol/L (136-145); TOTAL PROTEIN 7.2 gm/dL (6.4-8.2)
[2019-11-04 22:27] LABS: TROPONIN I < 0.015 ng/ml (<0.045)
[2019-11-04 22:29] LABS: ACT PARTIAL THROMBO TIME 24.3 SECONDS (20.0-32.1); INTERNATIONAL NORM RATIO 0.9 (2.0-3.5)
[2019-11-05 02:47] LABS: BILIRUBIN NEGATIVE (NEGATIVE); BLOOD NEGATIVE (NEGATIVE); CLARITY CLEAR (CLEAR); COLOR YELLOW (YELLOW); GLUCOSE TRACE (NEGATIVE); KETONE 1+ (NEGATIVE)
[2019-11-05 02:48] LABS: LEUKO ESTERASE TRACE (NEGATIVE); NITRITE NEGATIVE (NEGATIVE); UROBILINOGEN 0.2 E.U./dl (0.2-1.0)
== END 2019-11-05 04:00 | disposition short-term general hospital (02) ==
LOC: ED 21:14
PROVIDERS: Emergency Medicine Emergency Medical Services
DX: R10.9 Unspecified abdominal pain (principal); I10 Essential (primary) hypertension; E78.5 Hyperlipidemia, unspecified; E11.9 Type 2 diabetes mellitus without complications; Z88.6 Allergy status to analgesic agent; Z79.899 Other long term (current) drug therapy; Z79.82 Long term (current) use of aspirin; Z90.49 Acquired absence of other specified parts of digestive tract; Z90.710 Acquired absence of both cervix and uterus